=== PATIENT | female | born 1995 | race Caucasian/White ===

== ENCOUNTER 2018-04-30 20:04 | Emergency (ER) | payer BC ==
[2018-04-30 20:15] VITALS: RESP 18; TEMP 98.7
[2018-04-30] MEDS: LIDOCAINE 1% INJ 10MG/ML (20 ML MDV) SQ ONE ×2 (20:52→20:54)
[2018-04-30 20:58] VITALS: BP 141/80; PULSE 119
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
== END 2018-04-30 21:22 | disposition home or self-care (01) ==
LOC: EC 20:04
DX: S81.812A Laceration without foreign body, left lower leg, initial encounter (principal); S50.12XA Contusion of left forearm, initial encounter; V86.59XA Driver of other special all-terrain or other off-road motor vehicle injured in nontraffic accident, initial encounter; Y92.009 Unspecified place in unspecified non-institutional (private) residence as the place of occurrence of the external cause
CPT/HCPCS: 99283; 12002; J2001

== ENCOUNTER → 2018-08-01 | Outpatient (CLI) | payer BC | LOC: LABWHC1 09:58 | PROVIDERS: ATTEND Obstetrics & Gynecology | DX: O20.0 Threatened abortion (principal) | CPT/HCPCS: 36415; 84702; 86850; 86900; 86901 ==

== ENCOUNTER → 2018-08-03 | Outpatient (CLI) | payer BC | END | disposition home or self-care (01) | LOC: LABWHC1 10:53 | PROVIDERS: ATTEND Obstetrics & Gynecology | DX: O20.0 Threatened abortion (principal); Z3A.00 Weeks of gestation of pregnancy not specified | CPT/HCPCS: 36415; 84702 ==

== ENCOUNTER → 2018-11-23 | Outpatient (CLI) | payer BC | END | disposition home or self-care (01) | LOC: LABWHC1 13:42 | PROVIDERS: ATTEND Obstetrics & Gynecology | DX: O20.0 Threatened abortion (principal) | CPT/HCPCS: 36415; 84702 ==

== ENCOUNTER 2019-03-15 20:49 | Emergency (ER) | payer BC ==
[2019-03-15 21:23] VITALS: BP 156/95; PULSE 81; RESP 18; TEMP 98.5
[2019-03-15] MEDS ORDERED: TOPICAL SKIN ADHESIVE 1 EACH AMP TOPICAL ONE (21:49)
--- NOTE | 2019-03-15 22:10 | ED ---
Wound/Laceration HPI - General Chief Complaint: Wound/Laceration Stated Complaint: Finger laceration Time Seen by Provider: 03/15/19 21:36 Source: patient Mode of arrival: ambulatory Limitations: no limitations - History of Present Illness Initial Comments: Lizzie is a pleasant 23 yo female who presents to the ER today for evaluation of left index finger laceration. Patient reports that she was attempting to open a bag of cheese with appearing knife when she slipped and lacerated the tip of her finger. She noted that it was bleeding she wrapped in a paper towel and came to the ER for evaluation. Patient states that she had a laceration with sutures last year and that her tetanus is up to date - Related Data Previous Rx's Medication Instructions Recorded Ibuprofen [Motrin] 600 mg PO Q8HR PRN #30 tab 04/30/18 Allergies Allergy/AdvReac Type Severity Reaction Status Date / Time No Known Allergies Allergy Verified 03/15/19 21:23 Review of Systems ROS Statement: Those systems with pertinent positive or pertinent negative responses have been documented in the HPI. ROS Other: All systems not noted in ROS Statement are negative. Past Medical History Past Medical History: No Reported History History of Any Multi-Drug Resistant Organisms: None Reported Additional Past Surgical History / Comment(s): nasal surgery Past Psychological History: No Psychological Hx Reported Smoking Status: Current every day smoker Past Alcohol Use History: Occasional Past Drug Use History: None Reported General Exam - General Exam Comments Initial Comments: Physical Exam GENERAL: Patient is well-developed and well-nourished. Patient is nontoxic and well-hydrated and is in no distress. HENT: Normocephalic, Atraumatic. EYES: PERRL, EOMI PULMONARY: Unlabored respirations. CARDIOVASCULAR: RRR ABDOMEN: Non-distended SKIN: Superficial flap laceration of tip of left index finger, approximately 1.5 cm in total length, underlying fatty tissue visible : Deferred NEUROLOGIC: Patient is alert and oriented x3. Moving all extremities spontaneously MUSCULOSKELETAL: Normal extremities with adequate strength and full range of motion. No lower extremity swelling or edema. No calf tenderness. PSYCHIATRIC: Normal psychiatric evaluation. Limitations: no limitations Limitations: no limitations Course Vital Signs 03/15/19 21:20 Temperature 98.5 F Pulse Rate 81 Respiratory 18 Rate Blood Pressure 156/95 O2 Sat by Pulse 96 Oximetry Procedures - Laceration Laceration #1 Consent Obtained: verbal consent Indication: laceration Site: hand Size (cm): 1 Description: flap Depth: simple, single layer Pre-repair: wound explored, irrigated extensively, deep structures intact Type of Sutures: other (Skin glue) Patient Tolerated Procedure: well, no complications Medical Decision Making - Medical Decision Making Patient was seen and evaluated history was obtained from the patient Wound was cleansed with Betadine Wound with a flap of the tip of the finger, total length is 1.5 cm. There is underlying visible fat but no neurovascular tissue. There is no concern for any underlying bony or tendon injury given that this is superficial The patient that I suspect the flap will however we will glued down to provide a biologic dressing. Laceration was repaired with excellent and skin glue The patient tolerated procedure well Patient was discharged home in stable condition Disposition Clinical Impression: Laceration Disposition: HOME SELF-CARE Instructions (If sedation given, give patient instructions): Skin Adhesive Care (ED) Is patient prescribed a controlled substance at d/c from ED?: No Referrals: Joseph Mills MD [Primary Care Provider] - 1-2 days
== END 2019-03-15 22:15 | disposition home or self-care (01) ==
LOC: EC 20:49
DX: S61.211A Laceration without foreign body of left index finger without damage to nail, initial encounter (principal); F17.200 Nicotine dependence, unspecified, uncomplicated; W26.0XXA Contact with knife, initial encounter; Y93.89 Activity, other specified
CPT/HCPCS: 99282

== ENCOUNTER 2020-09-12 00:48 | Emergency (ER) | payer BC ==
[2020-09-12 01:11] VITALS: RESP 16
[2020-09-12] MEDS ORDERED: ACET/COD 300 MG/30 MG STARTER PACK 6 TAB BTL PO STA (01:55)
[2020-09-12] MEDS ORDERED: KETOROLAC 15 MG/ML 1 ML VIAL IM STA (01:55)
[2020-09-12] MEDS ORDERED: PENICILLIN VK 500MG STARTER 4 TAB BTL PO STA (01:55)
--- NOTE | 2020-09-12 02:07 | ED ---
General Adult HPI - General Chief complaint: Dental/Oral Stated complaint: Dental Pain Time Seen by Provider: 09/12/20 01:11 Source: patient, RN notes reviewed, old records reviewed Mode of arrival: ambulatory Limitations: no limitations - History of Present Illness Initial comments: 24-year-old female patient to ED for 2 days to left posterior molar dental pain. Patient reports that her tooth cracked and she's been having lots of pain since. Denies a chance . Denies any other acute complaints. Systemic: Pt denies fatigue, fever/chills, rash. Pt denies weakness, night sweats, weight loss. Neuro: Pt denies headache, visual disturbances, syncope or pre-syncope. HEENT: Pt denies ocular discharge or irritation, otalgia, rhinorrhea, pharyngitis or notable lymphadenopathy. Cardiopulmonary: Pt denies chest pain, SOB, heart palpitations, dyspnea on exertion. Abdominal/GI: Pt denies abdominal pain, n/v/d. : Pt denies dysuria, burning w/ urination, frequency/urgency. Denies new onset urinary or bowel incontinence. MSK: Pt denies myalgia, loss of strength or function in extremities. Neuro: Pt denies new onset weakness, paresthesias. - Related Data Previous Rx's Medication Instructions Recorded Ibuprofen [Motrin] 600 mg PO Q8HR PRN #30 tab 04/30/18 Penicillin V Potassium [Pen Vee K] 500 mg PO QID 7 Days #28 tablet 09/12/20 Allergies Allergy/AdvReac Type Severity Reaction Status Date / Time No Known Allergies Allergy Verified 09/12/20 01:11 Review of Systems ROS Statement: Those systems with pertinent positive or pertinent negative responses have been documented in the HPI. ROS Other: All systems not noted in ROS Statement are negative. Past Medical History Past Medical History: No Reported History History of Any Multi-Drug Resistant Organisms: None Reported Additional Past Surgical History / Comment(s): nasal surgery Past Psychological History: No Psychological Hx Reported Smoking Status: Current every day smoker Past Alcohol Use History: Rare Past Drug Use History: None Reported General Exam - General Exam Comments Initial Comments: Constitutional: NAD, AOX3, Pt has pleasant affect. HEENT: NC/AT, trachea midline, neck supple, no lymphadenopathy. Cracked left upper molar is noted. Mild tenderness to left upper molar region. No abscess, no drainage. External ears appear normal, without discharge. Mucous membranes moist. Eyes PERRLA, EOM intact. There is no scleral icterus. No pallor noted. Cardiopulmonary: RRR, no murmurs, rubs or gallops, no JVD noted. Lungs CTAB in anterior and posterior harris. No peripheral edema. Abdominal exam: Abdomen soft and non-distended. Neuro: CN II-XII grossly intact. MSK: Full active ROM in upper and lower extremities, 5/5 stregnth. Limitations: no limitations Course Vital Signs 09/12/20 01:08 Temperature 98.7 F Pulse Rate 101 H Respiratory 16 Rate Blood Pressure 156/97 O2 Sat by Pulse 98 Oximetry Medical Decision Making - Medical Decision Making 24-year-old female patient ED for evaluation left upper molar pain. This tooth is cracked. There is no abscess. There is small amount of gum erythema. Patient will be placed on Penicillin VK. Pt will follow up with primary care provider tomorrow and return here if any worsening symptoms. Case discussed with Dr. Campuzano. Disposition Clinical Impression: Pain, dental, Broken tooth Disposition: HOME SELF-CARE Condition: Stable Instructions (If sedation given, give patient instructions): Toothache (ED) Additional Instructions: Take antibiotics as directed. Follow up with PCP and dentist tomorrow. Return to ED with any worsening symptoms. Prescriptions: Penicillin V Potassium [Pen Vee K] 500 mg PO QID 7 Days #28 tablet Is patient prescribed a controlled substance at d/c from ED?: No Referrals: Joseph Mills MD [Primary Care Provider] - 1-2 days
[2020-09-12 02:45] VITALS: BP 160/107; PULSE 100; TEMP 97.8
== END 2020-09-12 02:45 | disposition home or self-care (01) ==
LOC: EC 00:48
DX: S02.5XXA Fracture of tooth (traumatic), initial encounter for closed fracture (principal); F17.200 Nicotine dependence, unspecified, uncomplicated; X58.XXXA Exposure to other specified factors, initial encounter
CPT/HCPCS: 96372; 99283

== ENCOUNTER → 2024-05-24 | Outpatient (CLI) | payer BC ==
[2024-05-24 13:30] LABS: Basophils % (A) 1 %; Eosinophils # (A) 0.1 k/uL (0-0.7); Eosinophils % (A) 2 %; HCT 37.8 % (34.0-46.0); HGB 12.8 gm/dL (11.4-16.0); Lymphocytes # (A) 1.1 k/uL (1.0-4.8); Lymphocytes % (A) 17 %; MCH 29.4 pg (25.0-35.0); MCHC 33.9 g/dL (31.0-37.0); MCV 86.8 fL (80.0-100.0); Mean Platelet Volume 7.8; Monocytes # (A) 0.3 k/uL (0-1.0); Monocytes % (A) 5 %; Neutrophils # (A) 4.8 k/uL (1.3-7.7); Neutrophils % (A) 73 %; Platelet Count 222 k/uL (150-450); RBC 4.35 m/uL (3.80-5.40); RDW 13.1 % (11.5-15.5); WBC 6.5 k/uL (3.8-10.6)
== END | disposition home or self-care (01) ==
LOC: LABPAT 12:50
PROVIDERS: ATTEND Obstetrics & Gynecology
DX: Z01.812 Encounter for preprocedural laboratory examination (principal); O02.1 Missed abortion
CPT/HCPCS: 84702; 85025; 86850; 86900; 86901

== ENCOUNTER → 2024-05-29 | Outpatient (CLI) | payer BC | END | disposition home or self-care (01) | LOC: LABPAT 08:13 | PROVIDERS: ATTEND Obstetrics & Gynecology | DX: Z01.812 Encounter for preprocedural laboratory examination (principal); O02.1 Missed abortion | CPT/HCPCS: 36415; 86850; 86900; 86901 ==

== ENCOUNTER 2024-05-31 06:10 | Day surgery (SDC) | payer BC ==
[2024-05-29 18:11] VITALS: BMI 29.1
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
[~2024-05-31 06:10] MED LIST: HYDROmorphone 0.5 MG/0.5 ML SYRINGE IVP PRN; LACTATED RINGERS 1,000 ML IV SCH; LIDOCAINE 1% (10MG/ML) FOR IV START INTRADERMA PRN; LIDOCAINE 1% INJ 10MG/ML (20 ML MDV) ONE; Pre Op ABX Message 1 EACH MISC MISCELLANE ONE; SCOPOLAMINE 1 MG/72 HR PATCH TRANSDERM ONE; VERAPAMIL 2.5 MG/ML 2 ML AMP ONE; droPERidol 5 MG/2 ML VIAL IVP PRN
[2024-05-31] MEDS: IV FLUID CONTINUATION 1,000 ML IV ONE (06:39)
[2024-05-31] MEDS: ONDANSETRON 4 MG/2 ML VIAL IVP ONE (06:51)
[2024-05-31] MEDS: DEXAMETHASONE SOD PHOSPHATE 4 MG/ML 1 ML VIAL IV ONE (06:51)
[2024-05-31] MEDS: MIDAZOLAM 2 MG/2 ML VIAL IV ONE (07:01)
[2024-05-31] MEDS ORDERED: LIDOCAINE 1% INJ 10MG/ML (20 ML MDV) ONE (07:19)
[2024-05-31] MEDS ORDERED: PROPOFOL 10 MG/ML 20 ML VIAL IV ONE (07:19)
[2024-05-31] MEDS ORDERED: MIDAZOLAM 2 MG/2 ML VIAL ONE (07:19)
[2024-05-31] MEDS ORDERED: fentaNYL (PF) 50 MCG/ML 2 ML AMP ONE (07:19)
[2024-05-31 08:06] VITALS: TEMP 97.3
--- NOTE | 2024-05-31 08:17 | P.OP ---
Date of Procedure: 05/31/24 Preoperative Diagnosis: 1. missed at 9 weeks Postoperative Diagnosis: same Procedure(s) Performed: suction D&C Anesthesia: MAC (LMA) Surgeon: Melly Garcia Estimated Blood Loss (ml): 350 IV fluids (ml): 400 Urine output (ml): 75 Pathology: other (uterine contents/products of conception) Condition: stable Disposition: PACU Description of Procedure: patient is taken the operating room where general anesthesia was obtained without difficulty. She is prepped draped in normal sterile fashion in dorsal lithotomy position, legs placed in the Jeet stirrups. Bladder was drained of all urine. Weighted speculum placed in the vagina and the anterior lip the cervix was grasped with a single-tooth tenaculum. The cervix was dilated to #10 Hegar dilator. A #10 curved suction curet was introduced into the uterus and pa ssed several times to obtain a moderate to large amount of tissue. A sharp curette was used gently to ensure all tissue had been removed. suction curet was then introduced again and passed a few more times. Hemostasis was then noted. All instruments were then removed from the vagina. Patient tolerated procedure well. Sponge and instrument counts correct 2. She was taken to recovery in stable condition.
[2024-05-31 08:56] VITALS: RESP 16
[2024-05-31 09:13] VITALS: BP 113/73; PULSE 64
== END 2024-05-31 09:43 | disposition home or self-care (01) ==
LOC: OR 06:10
PROVIDERS: ATTEND Obstetrics & Gynecology
DX: O02.1 Missed abortion (principal); F12.90 Cannabis use, unspecified, uncomplicated; Z87.891 Personal history of nicotine dependence
CPT/HCPCS: 59820; 88305; J2250; J1100; J2405; J2001; J3010; J2704